=== PATIENT | male | born 1940 | race Caucasian/White ===

== ENCOUNTER 2017-11-09 08:20 | Day surgery (SDC) | payer OTHER ==
[2017-11-09] VITALS (9 sets, daily range): BP systolic 104–137; BP diastolic 56–80
[~2017-11-09] VITALS: Ht 182.9 cm; Wt 99.0 kg
[2017-11-09] MEDS ORDERED: LORazepam 0.5 MG tablet PO PRN (09:40)
[2017-11-09] MEDS ORDERED: normal saline 1000ml 1,000 ML IV SCH (09:40)
[2017-11-09] MEDS ORDERED: diphenhydrAMINE 25mg capsule PO ONE (09:45)
[2017-11-09] MEDS ORDERED: ceFAZolin inj. 1,000 MG in dextrose 5%-water 50ml 50 ML IV SCH (10:00)
[2017-11-09] MEDS ORDERED: ceFAZolin 1GM/D5W- ADD-VANTAGE 50 ML IV SCH (10:00)
[2017-11-09] MEDS ORDERED: LACT1CAP65 PO (10:31)
[2017-11-09] MEDS ORDERED: CHOL100044 PO (10:31)
[2017-11-09] MEDS ORDERED: COQ (10:31)
[2017-11-09] MEDS ORDERED: TERA2CAP4 PO (10:31)
[2017-11-09] MEDS ORDERED: CARB1DRO5 EACHEYE (10:31)
[2017-11-09] MEDS ORDERED: GLUC-150 PO (10:31)
[2017-11-09] MEDS ORDERED: DORZ10DR18 EACHEYE (10:31)
[2017-11-09] MEDS ORDERED: TEST1.25 TD (10:31)
[2017-11-09] MEDS ORDERED: Black Seed Oil PO ×2 (10:31)
[2017-11-09] MEDS ORDERED: FENO48TA15 PO (10:31)
[2017-11-09] MEDS ORDERED: ATOR20TA PO (10:31)
[2017-11-09] MEDS ORDERED: OMEP40CA37 PO (10:31)
[2017-11-09] MEDS ORDERED: CLOP75TA35 PO (10:31)
[2017-11-09] MEDS ORDERED: GRAPESEED (10:31)
[2017-11-09] MEDS ORDERED: FISH12002 PO (10:31)
[2017-11-09] MEDS ORDERED: ASPI-1265 PO (10:31)
[2017-11-09] MEDS ORDERED: OREG1500 PO (10:31)
[2017-11-09] MEDS ORDERED: MULT-38 PO (10:31)
[2017-11-09] MEDS ORDERED: VITC500T PO (10:31)
[2017-11-09] MEDS ORDERED: midazolam 2 mg/2 ml injection ONE (13:57)
[2017-11-09] MEDS ORDERED: fentaNYL/PF 50MCG/1 ML 2ML syringe ONE (13:57)
[2017-11-09] MEDS ORDERED: ceFAZolin 1000mg inj ONE ×2 (13:57→14:58)
[2017-11-09] MEDS ORDERED: ceFAZolin 1GM/D5W- ADD-VANTAGE 50 ML IV ONE (13:57)
[2017-11-09] MEDS ORDERED: LIDOcaine 1.5% w/epinephrine 1:200,000 5ml ampul ONE (13:58)
== END 2017-11-09 17:50 | disposition home or self-care (01) ==
LOC: SSTAY O 08:20
PROVIDERS: ATTEND Internal Medicine Interventional Cardiology
DX: I44.1 Atrioventricular block, second degree (principal); I35.0 Nonrheumatic aortic (valve) stenosis; E78.5 Hyperlipidemia, unspecified; I44.5 Left posterior fascicular block; I10 Essential (primary) hypertension; E11.9 Type 2 diabetes mellitus without complications; I25.2 Old myocardial infarction; I25.810 Atherosclerosis of coronary artery bypass graft(s) without angina pectoris; Z87.891 Personal history of nicotine dependence; Z72.89 Other problems related to lifestyle; Z85.828 Personal history of other malignant neoplasm of skin; Z95.5 Presence of coronary angioplasty implant and graft; Z86.718 Personal history of other venous thrombosis and embolism; Z79.82 Long term (current) use of aspirin; Z79.899 Other long term (current) drug therapy; Z88.8 Allergy status to other drugs, medicaments and biological substances; Z98.890 Other specified postprocedural states
CPT/HCPCS: 33208; 93005; 99152; 99153; A4565; C1785; C1898; J0690; J2250; J3010; J3490; J7030; Q0163; A4620; J7060

== ENCOUNTER 2021-02-22 09:35 | Observation (INO) | payer OTHER ==
[~2021-02-22] VITALS: Ht 182.9 cm; Wt 102.2 kg
[~2021-02-22 09:35] MED LIST: ASPI-1265 PO; ATOR20TA PO; CARB1DRO5 EACHEYE; CHOL100044 PO; CLOP75TA34 PO; COQ PO; DORZ10DR18 EACHEYE; FENO48TA15 PO; FENO48TA9 PO; FISH12002 PO; GLUC-150 PO; GRAPESEED PO; LACT1CAP65 PO; LISI2.5T2 PO; METO-539 PO; MULT-38 PO; OMEP20CA15 PO; TERA2CAP4 PO; TEST1.25 TD
[2021-02-22 10:58] LABS: BASOPHILS # (AUTO) 0.1 X10'3 (0-0.2); BASOPHILS % (AUTO) 1.2 % (0-1); EOSINOPHILS # (AUTO) 0.2 X10'3 (0-0.9); EOSINOPHILS % (AUTO) 3.8 % (0-6); HEMATOCRIT 32.9 % (42.0-52.0); HEMOGLOBIN 11.3 g/dl (14.0-17.9); LYMPHOCYTES % (AUTO) 31.3 % (21-51); MEAN CORPUSCULAR HEMOGLOBIN 31.3 PG (27.0-31.0); MEAN CORPUSCULAR HGB CONC 34.3 g/dL (33.0-36.5); MEAN CORPUSCULAR VOLUME 91.3 FL (78-98); MEAN PLATELET VOLUME 7.3 FL (7.4-10.4); MONOCYTES # (AUTO) 0.7 X10'3 (0-0.9); MONOCYTES % (AUTO) 10.4 % (2-12); NEUTROPHILS # (AUTO) 3.3 X10'3 (1.8-7.7); NEUTROPHILS % (AUTO) 53.3 % (42-75); PLATELET COUNT 164 X10'3 (140-440); RED CELL DISTRIBUTION WIDTH 14.1 % (11.5-14.5); WHITE BLOOD COUNT 6.2 X10'3 (4.5-11.0)
[2021-02-22 11:14] LABS: ALANINE AMINOTRANSFERASE 19 U/L (12-78); ALBUMIN 3.5 G/DL (3.4-5.0); ALBUMIN/GLOBULIN RATIO 1.1 (1.1-1.5); ALKALINE PHOSPHATASE 26 IU/L (46-116); ANION GAP 9 (8-16); ASPARTATE AMINO TRANSFERASE 21 U/L (10-37); BILIRUBIN,TOTAL 0.5 MG/DL (0.1-1.0); BLOOD UREA NITROGEN 18 MG/DL (7-18); BUN/CREATININE RATIO 10.6 (5.4-32.0); CALCIUM 8.2 MG/DL (8.5-10.1); CHLORIDE 109 MMOL/L (99-107); GLUCOSE 97 MG/DL (70-104); POTASSIUM 4.1 MMOL/L (3.5-5.1); SODIUM 141 MMOL/L (135-145); TOTAL PROTEIN 6.6 G/DL (6.4-8.2); eGFR 39 ML/MIN
[2021-02-22] MEDS ORDERED: normal saline 1000ML IV soln IVB ONE (13:00)
[2021-02-22] MEDS ORDERED: morphine 2 MG/ML inj. syringe IV PRN ×2 (13:35)
[2021-02-22] MEDS ORDERED: diphenhydrAMINE 25mg capsule PO PRN (13:35)
[2021-02-22] MEDS: normal saline 1000ml 1,000 ML IV SCH ×2 (13:35→22:56)
[2021-02-22] MEDS ORDERED: magnesium 2GM in 50ml NS 50 ML IV PRN (13:35)
[2021-02-22] MEDS ORDERED: HYDROcodone/acetaminophen 5mg/325mg tablet PO PRN (13:35)
[2021-02-22] MEDS ORDERED: HYDROcodone/acetaminophen 10/325mg tab PO PRN (13:35)
[2021-02-22] MEDS ORDERED: acetaminophen 650mg rectal suppository RC PRN (13:35)
[2021-02-22] MEDS ORDERED: magnesium Cl slow-release 64mg tablet PO PRN (13:35)
[2021-02-22] MEDS ORDERED: magnesium 4gm in 100ml NS 100 ML IV PRN (13:35)
[2021-02-22] MEDS ORDERED: magnesium hydroxide 30ml (MOM) UD suspension PO PRN (13:35)
[2021-02-22] MEDS ORDERED: potassium Cl 40MEQ/1/2NS 520ml 520 ML IV PRN ×2 (13:35)
[2021-02-22] MEDS ORDERED: bisacodyl 10mg suppository rectal RC PRN (13:35)
[2021-02-22] MEDS ORDERED: ondansetron/PF 4mg/2ml inj IV PRN (13:35)
[2021-02-22] MEDS ORDERED: mag hydrox/Alum hydrox/simeth 30ml oral suspension PO PRN (13:35)
[2021-02-22] MEDS ORDERED: potassium Cl 20 mEq SR tablet PO PRN ×2 (13:35)
[2021-02-22] MEDS ORDERED: acetaminophen 325mg tablet PO PRN ×2 (13:35)
[2021-02-22 13:58] LABS: CHOL/HDL RATIO 3.5 (0.00-4.99); CHOLESTEROL 145 MG/DL (0-200); HDL CHOLESTEROL 42 MG/DL (35-60); LDL CHOLESTEROL 59 MG/DL (50-100); TRIGLYCERIDES 312 MG/DL (20-135)
[2021-02-22 14:05] LABS: HEMOGLOBIN A1C 6.1 % (4.5-6.2)
[2021-02-22 16:18] LABS: CLARITY,URINE CLEAR (Clear); COLOR,URINE YELLOW (Yellow); GLUCOSE, URINE NEGATIVE (Neg); KETONES,URINE NEGATIVE (Neg); LEUKOCYTE ESTERASE ,URINE NEGATIVE (Neg); NITRITES, URINE NEGATIVE (Neg); OCCULT BLOOD,URINE NEGATIVE (Neg); PROTEIN,URINE NEGATIVE (Neg); UROBILINOGEN,URINE 0.2 E.U/dL (0.2-1.0)
[2021-02-22 16:20] LABS: UA COLLECTION TYPE URINAL
[2021-02-22] MEDS ORDERED: APIX5TAB3 PO (17:40)
[2021-02-22 18:00] VITALS: BP 114/56
--- NOTE | 2021-02-22 18:00 | NUR ---
Patient in room ORTHO 4017. I have received report from JULIO Harrison and had the opportunity to ask questions and assume patient care.
[2021-02-22] MEDS: K and/or MAG REPLACEMENT MC SCH (19:12)
[2021-02-22] MEDS ORDERED: FENO145T26 PO (19:42)
[2021-02-22] MEDS ORDERED: CHOL10006 PO (19:45)
[2021-02-22] MEDS ORDERED: VITA400C67 PO (19:45)
[2021-02-22] MEDS ORDERED: ROSU40TA PO (19:45)
[2021-02-22] MEDS ORDERED: ASCO-139 PO (19:45)
[2021-02-22] MEDS ORDERED: TROS20TA4 PO (19:48)
[2021-02-22] MEDS ORDERED: BETA1TAB PO (19:48)
[2021-02-22] MEDS ORDERED: TERA10CA4 PO (19:48)
[2021-02-22] MEDS ORDERED: FINA5TAB11 PO (19:48)
[2021-02-22] MEDS ORDERED: pantoprazole 40mg Tablet.DR PO PRN (19:55)
[2021-02-22 20:00] VITALS: BP_SYST 115; BP_SYST 117; BP_DIAS 46; BP_DIAS 52
[2021-02-22] MEDS ORDERED: heparin, porcine 5000 units/ml vial SQ SCH (20:00)
[2021-02-22] MEDS: apixaban 5mg tablet PO SCH (20:41)
[2021-02-22] MEDS: cholecalciferol (vitamin D3) 1,000 unit (25mcg) tablet PO SCH (20:41)
[2021-02-22] MEDS: lactobacillus rhamnosus 10,000 MMU CELLS/CAPSULE PO SCH (20:41)
[2021-02-22] MEDS: dorzolamide/timolol (Cosopt) ophthalmic drops 10ml bottle EACHEYE SCH (20:42)
[2021-02-22] MEDS: terazosin 5mg capsule PO SCH ×2 (20:43→20:50)
[2021-02-22] MEDS ORDERED: non-formulary drug (Fish Oil/Borage/Flax/Om3,6,9#1 (Omega 3-6-9 1,200 mg Softgel) 1 CAP) PO SCH (21:00)
[2021-02-22] MEDS: polyvinyl alcohol ophthalmic drops 15ml bottle EACHEYE SCH (21:00)
[2021-02-22 22:00] VITALS: BP 117/46
[2021-02-23 02:00] VITALS: BP 92/48
[2021-02-23 06:00] VITALS: BP 119/57
--- NOTE | 2021-02-23 06:13 | NUR ---
Problems reprioritized. Patient report given, questions answered & plan of care reviewed with JULIO Chan.
[2021-02-23 06:58] LABS: EOSINOPHILS # (AUTO) 0.3 X10'3 (0-0.9); EOSINOPHILS % (AUTO) 6.1 % (0-6); HEMATOCRIT 32.7 % (42.0-52.0); HEMOGLOBIN 10.9 g/dl (14.0-17.9); LYMPHOCYTES # (AUTO) 1.6 X10'3 (1.1-4.8); LYMPHOCYTES % (AUTO) 37.2 % (21-51); MEAN CORPUSCULAR HEMOGLOBIN 31.6 PG (27.0-31.0); MEAN CORPUSCULAR HGB CONC 33.5 g/dL (33.0-36.5); MEAN CORPUSCULAR VOLUME 94.3 FL (78-98); MEAN PLATELET VOLUME 7.7 FL (7.4-10.4); MONOCYTES # (AUTO) 0.5 X10'3 (0-0.9); MONOCYTES % (AUTO) 10.8 % (2-12); NEUTROPHILS % (AUTO) 44.9 % (42-75); PLATELET COUNT 146 X10'3 (140-440); RED BLOOD COUNT 3.46 X10'6 (4.70-6.10); RED CELL DISTRIBUTION WIDTH 14.3 % (11.5-14.5); WHITE BLOOD COUNT 4.4 X10'3 (4.5-11.0)
[2021-02-23 07:00] VITALS: BP_SYST 108; BP_SYST 119; BP_DIAS 51; BP_DIAS 55; BP_DIAS 57
[2021-02-23 07:16] LABS: ALANINE AMINOTRANSFERASE 20 U/L (12-78); ALKALINE PHOSPHATASE 26 IU/L (46-116); ANION GAP 11 (8-16); ASPARTATE AMINO TRANSFERASE 14 U/L (10-37); BILIRUBIN,TOTAL 0.4 MG/DL (0.1-1.0); BLOOD UREA NITROGEN 20 MG/DL (7-18); BUN/CREATININE RATIO 14.1 (5.4-32.0); CHLORIDE 110 MMOL/L (99-107); CHOL/HDL RATIO 3.8 (0.00-4.99); CHOLESTEROL 137 MG/DL (0-200); CREATININE 1.42 MG/DL (0.60-1.10); GLUCOSE 102 MG/DL (70-104); HDL CHOLESTEROL 36 MG/DL (35-60); LDL CHOLESTEROL 53 MG/DL (50-100); PHOSPHORUS 3.6 MG/DL (2.3-4.5); POTASSIUM 4.1 MMOL/L (3.5-5.1); SODIUM 141 MMOL/L (135-145); TOTAL CARBON DIOXIDE 19.6 MMOL/L (24-32); TOTAL PROTEIN 6.1 G/DL (6.4-8.2); TRIGLYCERIDES 315 MG/DL (20-135); eGFR 48 ML/MIN
[2021-02-23] MEDS: K and/or MAG REPLACEMENT MC SCH ×2 (08:00→19:16)
[2021-02-23] MEDS: polyvinyl alcohol ophthalmic drops 15ml bottle EACHEYE SCH ×4 (08:00→19:46)
[2021-02-23] MEDS ORDERED: lisinopril 2.5mg tablet PO SCH ×2 (08:00→19:00)
[2021-02-23] MEDS: lactobacillus rhamnosus 10,000 MMU CELLS/CAPSULE PO SCH ×2 (09:26→19:46)
[2021-02-23] MEDS: aspirin 81mg tab.chew PO SCH (09:26)
[2021-02-23] MEDS: normal saline 1000ml 1,000 ML IV SCH ×2 (09:35→19:35)
[2021-02-23] MEDS: fenofibrate 145mg tablet PO SCH (09:36)
[2021-02-23] MEDS: cholecalciferol (vitamin D3) 1,000 unit (25mcg) tablet PO SCH ×2 (09:36→19:45)
[2021-02-23] MEDS: vitamin E 400 unit capsule PO SCH (09:37)
[2021-02-23] MEDS: atorvastatin 20mg tablet PO SCH (09:37)
[2021-02-23] MEDS: dorzolamide/timolol (Cosopt) ophthalmic drops 10ml bottle EACHEYE SCH ×2 (09:37→19:46)
[2021-02-23] MEDS: ascorbic acid 500mg tablet PO SCH (09:37)
[2021-02-23] MEDS: apixaban 5mg tablet PO SCH ×2 (09:37→19:46)
[2021-02-23] MEDS: finasteride 5mg tablet PO SCH (09:37)
[2021-02-23] MEDS: beta-carotene(A) w/C & E + minerals tab PO SCH (09:37)
[2021-02-23] MEDS: metoprolol succinate 25mg (24-HOUR) SR. Tablet PO SCH (09:37)
[2021-02-23] MEDS: multivitamins, therapeutics tablet PO SCH (09:37)
--- NOTE | 2021-02-23 12:51 | NUR ---
CALLED [facility] AT , [facility] TOLD ME THAT PT IMPLANTABLE CARDIAC PACEMAKER IS NOT MRI SAFE AND THAT SHE WILL PAGE/CALL THE REP IN [facility] ARE[facility] TO CALL NURSING STAFF, REP CALLED NURSING STAFF AND SAID THAT THEY ARE PLACING PT ON THEIR SCHEDULE FOR TOMORROW TO INTERROGATE PT PACER
--- NOTE | 2021-02-23 13:09 | NUR ---
PAGED DR MARINO RE: PAGER ID: [phone] MESSAGE: MARIE CHAUDHARI. PACEMAKER IS NOT MRI COMPATIBLE. IT IS SCHEDULED TO BE INTERROGATED TOMORROW 02/24. O/N SANIA [id number]
[2021-02-23 18:00] VITALS: BP 106/54
--- NOTE | 2021-02-23 18:45 | NUR ---
Problems reprioritized. Patient report given, questions answered & plan of care reviewed with OSCAR KIM.
[2021-02-23] MEDS: terazosin 5mg capsule PO SCH (19:48)
[2021-02-23 22:00] VITALS: BP 99/51
--- NOTE | 2021-02-24 06:27 | NUR ---
Problems reprioritized. Patient report given, questions answered & plan of care reviewed with JULIO Ellington.
--- NOTE | 2021-02-24 06:41 | NUR ---
Patient in room ORTHO 4017. I have received report from JULIO De Luna and had the opportunity to ask questions and assume patient care.
--- NOTE | 2021-02-24 06:46 | NUR ---
Patient in room ORTHO 4017. I have received report from JULIO Fernandez and had the opportunity to ask questions and assume patient care. Rhys Hendricks RN will provide primary care. I will monitor all care and assist when needed.
[2021-02-24 06:56] VITALS: BP 117/61
[2021-02-24] MEDS: dorzolamide/timolol (Cosopt) ophthalmic drops 10ml bottle EACHEYE SCH (07:43)
[2021-02-24] MEDS: vitamin E 400 unit capsule PO SCH (07:44)
[2021-02-24] MEDS: ascorbic acid 500mg tablet PO SCH (07:44)
[2021-02-24] MEDS: beta-carotene(A) w/C & E + minerals tab PO SCH (07:45)
[2021-02-24] MEDS: cholecalciferol (vitamin D3) 1,000 unit (25mcg) tablet PO SCH (07:45)
[2021-02-24] MEDS: aspirin 81mg tab.chew PO SCH (07:45)
[2021-02-24] MEDS: lactobacillus rhamnosus 10,000 MMU CELLS/CAPSULE PO SCH (07:45)
[2021-02-24] MEDS: multivitamins, therapeutics tablet PO SCH (07:46)
[2021-02-24] MEDS: apixaban 5mg tablet PO SCH (07:46)
[2021-02-24] MEDS: atorvastatin 20mg tablet PO SCH (07:47)
[2021-02-24] MEDS: polyvinyl alcohol ophthalmic drops 15ml bottle EACHEYE SCH ×2 (07:48→13:00)
[2021-02-24] MEDS: finasteride 5mg tablet PO SCH (07:49)
[2021-02-24] MEDS: metoprolol succinate 25mg (24-HOUR) SR. Tablet PO SCH (07:49)
[2021-02-24] MEDS: fenofibrate 145mg tablet PO SCH (07:50)
[2021-02-24 08:00] VITALS: BP_SYST 110; BP_SYST 160; BP_SYST 97; BP_DIAS 40; BP_DIAS 55
[2021-02-24] MEDS: K and/or MAG REPLACEMENT MC SCH (08:00)
[2021-02-24 09:27] LABS: BASOPHILS % (AUTO) 0.9 % (0-1); EOSINOPHILS # (AUTO) 0.2 X10'3 (0-0.9); EOSINOPHILS % (AUTO) 4.6 % (0-6); HEMATOCRIT 33.3 % (42.0-52.0); HEMOGLOBIN 11.1 g/dl (14.0-17.9); LYMPHOCYTES # (AUTO) 1.6 X10'3 (1.1-4.8); LYMPHOCYTES % (AUTO) 29.9 % (21-51); MEAN CORPUSCULAR HEMOGLOBIN 31.3 PG (27.0-31.0); MEAN CORPUSCULAR HGB CONC 33.4 g/dL (33.0-36.5); MEAN CORPUSCULAR VOLUME 93.7 FL (78-98); MEAN PLATELET VOLUME 7.6 FL (7.4-10.4); MONOCYTES # (AUTO) 0.3 X10'3 (0-0.9); MONOCYTES % (AUTO) 5.6 % (2-12); NEUTROPHILS # (AUTO) 3.1 X10'3 (1.8-7.7); PLATELET COUNT 149 X10'3 (140-440); RED BLOOD COUNT 3.55 X10'6 (4.70-6.10); RED CELL DISTRIBUTION WIDTH 14.3 % (11.5-14.5); WHITE BLOOD COUNT 5.3 X10'3 (4.5-11.0)
[2021-02-24 10:07] LABS: ALANINE AMINOTRANSFERASE 15 U/L (12-78); ALBUMIN 3.2 G/DL (3.4-5.0); ALKALINE PHOSPHATASE 23 IU/L (46-116); ANION GAP 11 (8-16); ASPARTATE AMINO TRANSFERASE 17 U/L (10-37); BILIRUBIN,TOTAL 0.5 MG/DL (0.1-1.0); BLOOD UREA NITROGEN 20 MG/DL (7-18); BUN/CREATININE RATIO 14.6 (5.4-32.0); CALCIUM 8.4 MG/DL (8.5-10.1); CHLORIDE 107 MMOL/L (99-107); CREATININE 1.37 MG/DL (0.60-1.10); GLUCOSE 156 MG/DL (70-104); MAGNESIUM 1.8 MG/DL (1.5-2.4); PHOSPHORUS 2.9 MG/DL (2.3-4.5); POTASSIUM 3.8 MMOL/L (3.5-5.1); SODIUM 139 MMOL/L (135-145); TOTAL CARBON DIOXIDE 21.5 MMOL/L (24-32); TOTAL PROTEIN 6.3 G/DL (6.4-8.2); eGFR 50 ML/MIN
--- NOTE | 2021-02-24 10:09 | NUR ---
Page Sent PAGER ID: [phone] MESSAGE: MARÍA 5430-RE: MARIE CHAUDHARI [phone]...[facility] CALLED, THEY CANNOT SEND ANYONE TODAY TO INTERROGATE PACEMAKER...THEY PULLED A REPORT FROM DEVICE AND STATED THAT THE DEVICE LOOKS GOOD AND FORWARDED REPORT TO DR MORATAYA...OK TO DC PT?
--- NOTE | 2021-02-24 13:49 | NUR ---
In to discharge Pt, at bedside. Reviewed discharge instructions, and f/u apts-Pt agreeable. Tele 46m removed. 20G PIV to (L) FA removed without complications, catheter tip intact, bandage applied. Escorted pt out of facility in stable condition.
--- NOTE | 2021-02-24 13:57 | NUR ---
[place] documentation: I have reviewed and agree with all interventions, assessments performed and documented by JULIO Hendricks. Pt DC in stable condition.
== END 2021-02-24 13:15 | disposition home or self-care (01) ==
LOC: ER 09:36 → ED HOLD 13:33 → EDBEDREQ 15:06 → ORTHO 4S 16:15
PROVIDERS: ADMIT Family Medicine; ATTEND Family Medicine
DX: R55 Syncope and collapse (principal); R42 Dizziness and giddiness; R53.1 Weakness; I10 Essential (primary) hypertension; E78.5 Hyperlipidemia, unspecified; I25.10 Atherosclerotic heart disease of native coronary artery without angina pectoris; K21.9 Gastro-esophageal reflux disease without esophagitis; N40.0 Benign prostatic hyperplasia without lower urinary tract symptoms; E78.1 Pure hyperglyceridemia; I48.91 Unspecified atrial fibrillation; Z88.8 Allergy status to other drugs, medicaments and biological substances; Z98.890 Other specified postprocedural states; Z95.0 Presence of cardiac pacemaker; Z79.01 Long term (current) use of anticoagulants; Z79.02 Long term (current) use of antithrombotics/antiplatelets; Z79.82 Long term (current) use of aspirin; Z79.899 Other long term (current) drug therapy; Z87.891 Personal history of nicotine dependence; Z95.1 Presence of aortocoronary bypass graft
CPT/HCPCS: 36415; 70450; 71045; 80053; 80061; 81003; 83036; 83735; 83880; 84100; 84443; 84484; 84550; 85025; 85651; 87081; 92508; 92616; 93005; 93306; 93880; 96360; 96361; 97110; 97116; 97161; 97530; 99285; G0378; J7030

== ENCOUNTER 2023-02-10 11:13 | Emergency (ER) | payer OTHER, MEDICARE ==
[~2023-02-10] VITALS: Ht 185.4 cm; Wt 120.0 kg
[~2023-02-10 11:13] MED LIST changes: +APIX5TAB3 PO; +ASCO-139 PO; -ATOR20TA PO; +BETA1TAB PO; -CHOL100044 PO; +CHOL10006 PO; -CLOP75TA34 PO; -DORZ10DR18 EACHEYE; +DORZ10DR32 EACHEYE; +FENO145T26 PO; -FENO48TA15 PO; -FENO48TA9 PO; +FINA5TAB11 PO; -GLUC-150 PO; +LISI2.5T14 PO; -LISI2.5T2 PO; +ROSU40TA PO; +TERA10CA4 PO; -TERA2CAP4 PO; -TEST1.25 TD; +TROS20TA4 PO; +VITA400C67 PO
[2023-02-10 11:17] VITALS: BP 112/58
--- NOTE | 2023-02-10 11:40 | NUR ---
Pt came in c/o 02/22 back pain to his L side. Pt unable to AMB r/t pain. Pt was taking in a w/c and assisted into bed.
[2023-02-10] MEDS ORDERED: HYDROcodone/acetaminophen 10/325mg tab PO ONE ×2 (11:50→12:35)
--- NOTE | 2023-02-10 12:00 | NUR ---
UA sent to lab.
[2023-02-10 12:09] LABS: CLARITY,URINE CLEAR (Clear); COLOR,URINE YELLOW (Yellow); GLUCOSE, URINE NEGATIVE (Neg); KETONES,URINE NEGATIVE (Neg); LEUKOCYTE ESTERASE ,URINE NEGATIVE (Neg); NITRITES, URINE NEGATIVE (Neg); OCCULT BLOOD,URINE NEGATIVE (Neg); PH,URINE 5.5 (4.8-8.0); PROTEIN,URINE NEGATIVE (Neg); UA COLLECTION TYPE VOIDED; UROBILINOGEN,URINE 0.2 E.U/dL (0.2-1.0)
[2023-02-10 12:40] LABS: BASOPHILS # (AUTO) 0.1 X10'3 (0-0.2); BASOPHILS % (AUTO) 1.1 % (0-1); EOSINOPHILS # (AUTO) 0.2 X10'3 (0-0.9); EOSINOPHILS % (AUTO) 3.3 % (0-6); HEMATOCRIT 37.1 % (42.0-52.0); HEMOGLOBIN 12.5 g/dl (14.0-17.9); LYMPHOCYTES # (AUTO) 1.7 X10'3 (1.1-4.8); LYMPHOCYTES % (AUTO) 29.7 % (21-51); MEAN CORPUSCULAR HEMOGLOBIN 31.1 PG (27.0-31.0); MEAN CORPUSCULAR HGB CONC 33.6 g/dL (33.0-36.5); MEAN CORPUSCULAR VOLUME 92.6 FL (78-98); MEAN PLATELET VOLUME 7.6 FL (7.4-10.4); MONOCYTES # (AUTO) 0.4 X10'3 (0-0.9); MONOCYTES % (AUTO) 7.6 % (2-12); NEUTROPHILS # (AUTO) 3.4 X10'3 (1.8-7.7); NEUTROPHILS % (AUTO) 58.3 % (42-75); PLATELET COUNT 194 X10'3 (140-440); RED BLOOD COUNT 4.01 X10'6 (4.70-6.10); RED CELL DISTRIBUTION WIDTH 13.7 % (11.5-14.5); WHITE BLOOD COUNT 5.9 X10'3 (4.5-11.0)
[2023-02-10 12:46] LABS: ALANINE AMINOTRANSFERASE 25 U/L (12-78); ALBUMIN 3.5 G/DL (3.4-5.0); ALKALINE PHOSPHATASE 34 IU/L (46-116); ANION GAP 8 (8-16); ASPARTATE AMINO TRANSFERASE 23 U/L (10-37); BILIRUBIN,TOTAL 0.5 MG/DL (0.1-1.0); BLOOD UREA NITROGEN 19 MG/DL (7-18); BUN/CREATININE RATIO 12.3 (10.0-20.0); CALCIUM 8.8 MG/DL (8.5-10.1); CHLORIDE 107 MMOL/L (99-107); CREATININE 1.55 MG/DL (0.60-1.10); GLUCOSE 108 MG/DL (70-104); POTASSIUM 4.3 MMOL/L (3.5-5.1); SODIUM 137 MMOL/L (135-145); TOTAL CARBON DIOXIDE 22.1 MMOL/L (24-32); eGFR 43 ML/MIN
[2023-02-10] MEDS ORDERED: LIDO-15 TOP (12:57)
[2023-02-10] MEDS ORDERED: TRAM50TA2 PO (12:57)
== END 2023-02-10 13:14 | disposition home or self-care (01) ==
LOC: ER 11:13
DX: M54.59 Other low back pain (principal); M79.10 Myalgia, unspecified site; I51.9 Heart disease, unspecified; Z88.8 Allergy status to other drugs, medicaments and biological substances; Z88.6 Allergy status to analgesic agent; Z79.899 Other long term (current) drug therapy
CPT/HCPCS: 36415; 80053; 81003; 85025; 99283

== ENCOUNTER 2023-04-20 11:42 | Day surgery (SDC) | payer OTHER ==
[2023-04-16 10:14] LABS: BASOPHILS # (AUTO) 0.1 X10'3 (0-0.2); BASOPHILS % (AUTO) 1.2 % (0-1); EOSINOPHILS # (AUTO) 0.2 X10'3 (0-0.9); EOSINOPHILS % (AUTO) 4.3 % (0-6); HEMATOCRIT 37.1 % (42.0-52.0); HEMOGLOBIN 12.4 g/dl (14.0-17.9); LYMPHOCYTES # (AUTO) 1.8 X10'3 (1.1-4.8); MEAN CORPUSCULAR HEMOGLOBIN 31.2 PG (27.0-31.0); MEAN CORPUSCULAR HGB CONC 33.4 g/dL (33.0-36.5); MEAN CORPUSCULAR VOLUME 93.4 FL (78-98); MEAN PLATELET VOLUME 7.6 FL (7.4-10.4); MONOCYTES # (AUTO) 0.5 X10'3 (0-0.9); NEUTROPHILS # (AUTO) 3.1 X10'3 (1.8-7.7); NEUTROPHILS % (AUTO) 53.5 % (42-75); PLATELET COUNT 195 X10'3 (140-440); RED BLOOD COUNT 3.97 X10'6 (4.70-6.10); RED CELL DISTRIBUTION WIDTH 14.1 % (11.5-14.5); WHITE BLOOD COUNT 5.7 X10'3 (4.5-11.0)
[2023-04-16 10:25] LABS: APTT 29 SECONDS (22-32); INR 1.1 INR; PROTHROMBIN TIME 11.6 SECONDS (9.0-12.0)
[2023-04-16 10:31] LABS: ALBUMIN 3.5 G/DL (3.4-5.0); ANION GAP 12 (8-16); BLOOD UREA NITROGEN 20 MG/DL (7-18); BUN/CREATININE RATIO 11.8 (10.0-20.0); CALCIUM 9.1 MG/DL (8.5-10.1); CHLORIDE 106 MMOL/L (99-107); CHOL/HDL RATIO 3.6 (0.00-4.99); CHOLESTEROL 135 MG/DL (0-200); CREATININE 1.69 MG/DL (0.60-1.10); GLUCOSE 108 MG/DL (70-104); HDL CHOLESTEROL 37 MG/DL (35-60); LDL CHOLESTEROL 44 MG/DL (50-100); POTASSIUM 3.8 MMOL/L (3.5-5.1); SODIUM 141 MMOL/L (135-145); TOTAL CARBON DIOXIDE 23.1 MMOL/L (24-32); TRIGLYCERIDES 377 MG/DL (20-135); eGFR 39 ML/MIN
[2023-04-20] VITALS (12 sets, daily range): BP systolic 93–122; BP diastolic 57–91; PULSE 66–79; RESP 14–18; TEMP 97.8; O2SAT 94–99
[~2023-04-20] VITALS: Ht 182.9 cm; Wt 99.4 kg
[~2023-04-20 11:42] MED LIST changes: +LIDO-15 TOP
[2023-04-20] MEDS ORDERED: normal saline 1,000 ML IV SCH (12:00)
[2023-04-20] MEDS ORDERED: diphenhydrAMINE 25mg capsule PO PRN (12:00)
[2023-04-20] MEDS ORDERED: LORazepam 0.5 MG tablet PO PRN (12:00)
[2023-04-20] MEDS ORDERED: LIDOcaine 1% (10mg/ml) 2ml vial ONE (12:22)
[2023-04-20] MEDS ORDERED: OREG1500 PO (12:53)
[2023-04-20] MEDS ORDERED: UBID100C16 PO (12:53)
[2023-04-20] MEDS ORDERED: Prevagen PO (12:54)
[2023-04-20] MEDS ORDERED: CARB15DR EACHEYE (12:54)
[2023-04-20] MEDS ORDERED: PUMPKIN SEED OIL PO (12:54)
[2023-04-20] MEDS ORDERED: LIDOcaine 1% 30ml preserv. free vial ONE (13:03)
[2023-04-20] MEDS ORDERED: heparin 1,000unit/ml 10ml vial 10 ML ONE (13:03)
[2023-04-20] MEDS ORDERED: midazolam 1 mg/ML 2ml injection ONE ×3 (13:03→14:17)
[2023-04-20] MEDS ORDERED: fentaNYL/PF 50MCG/1 ML 2ML syringe ONE (13:03)
[2023-04-20] MEDS ORDERED: nitroGLYCERIN 500mcg/5mL D5W 5 ML IV ONE (13:04)
[2023-04-20] MEDS ORDERED: DOBUTamine-DoBUTrex 500mg/D5W 250 ML IV ONE (13:19)
[2023-04-20] MEDS ORDERED: iohexol 350MG/ML 100ml bottle IV ONE (13:29)
[2023-04-20] MEDS ORDERED: metoprolol tartrate 1mg/ml inj IV ONE (14:10)
== END 2023-04-20 18:20 | disposition home or self-care (01) ==
LOC: SSTAY O 11:42
PROVIDERS: ATTEND Student in an Organized Health Care Education/Training Program
DX: I35.2 Nonrheumatic aortic (valve) stenosis with insufficiency (principal); I25.810 Atherosclerosis of coronary artery bypass graft(s) without angina pectoris; E78.5 Hyperlipidemia, unspecified; G47.33 Obstructive sleep apnea (adult) (pediatric); E11.9 Type 2 diabetes mellitus without complications; I48.92 Unspecified atrial flutter; I44.1 Atrioventricular block, second degree; I65.29 Occlusion and stenosis of unspecified carotid artery; I25.2 Old myocardial infarction; I10 Essential (primary) hypertension; I49.5 Sick sinus syndrome; Z86.718 Personal history of other venous thrombosis and embolism; Z95.0 Presence of cardiac pacemaker; Z79.01 Long term (current) use of anticoagulants; Z79.899 Other long term (current) drug therapy; Z95.5 Presence of coronary angioplasty implant and graft; Z88.8 Allergy status to other drugs, medicaments and biological substances
CPT/HCPCS: 36415; 80048; 80061; 85025; 85610; 85730; 93005; 93461; 99152; 99153; J1250; J1644; J2250; J3010; J3490; J7030; Q9967; A6258; C1751; C1760

== ENCOUNTER 2024-02-15 10:41 | Day surgery (SDC) | payer OTHER ==
[~2024-02-15] VITALS: Ht 182.9 cm; Wt 96.4 kg
[~2024-02-15 10:41] MED LIST changes: -ASPI-1265 PO; +CARB15DR EACHEYE; -CARB1DRO5 EACHEYE; -COQ PO; -GRAPESEED PO; -LACT1CAP65 PO; -LIDO-15 TOP; -OMEP20CA15 PO; +OREG1500 PO; +PUMPKIN SEED OIL PO; +Prevagen PO; -TERA10CA4 PO; +UBID100C16 PO
[2024-02-15] MEDS ORDERED: diphenhydrAMINE 25mg capsule PO PRN (11:05)
[2024-02-15] MEDS ORDERED: LORazepam 0.5 MG tablet PO PRN (11:05)
[2024-02-15] MEDS ORDERED: normal saline 1,000 ML IV SCH (11:05)
[2024-02-15 11:48] LABS: BASOPHILS # (AUTO) 0.1 X10'3 (0-0.2); BASOPHILS % (AUTO) 1.2 % (0-1); EOSINOPHILS # (AUTO) 0.3 X10'3 (0-0.9); EOSINOPHILS % (AUTO) 3.7 % (0-6); HEMATOCRIT 34.5 % (42.0-52.0); HEMOGLOBIN 11.6 g/dl (14.0-17.9); LYMPHOCYTES # (AUTO) 2.6 X10'3 (1.1-4.8); LYMPHOCYTES % (AUTO) 36.2 % (21-51); MEAN CORPUSCULAR HGB CONC 33.6 g/dL (33.0-36.5); MEAN CORPUSCULAR VOLUME 92.3 FL (78-98); MEAN PLATELET VOLUME 7.4 FL (7.4-10.4); MONOCYTES # (AUTO) 0.8 X10'3 (0-0.9); MONOCYTES % (AUTO) 10.7 % (2-12); NEUTROPHILS # (AUTO) 3.5 X10'3 (1.8-7.7); NEUTROPHILS % (AUTO) 48.2 % (42-75); PLATELET COUNT 183 X10'3 (140-440); RED BLOOD COUNT 3.74 X10'6 (4.70-6.10); RED CELL DISTRIBUTION WIDTH 13.9 % (11.5-14.5); WHITE BLOOD COUNT 7.2 X10'3 (4.5-11.0)
[2024-02-15 11:52] LABS: APTT 24 SECONDS (22-32); PROTHROMBIN TIME 10.4 SECONDS (9.0-12.0)
[2024-02-15 11:56] LABS: ALBUMIN 3.4 G/DL (3.4-5.0); ANION GAP 12 (8-16); BLOOD UREA NITROGEN 15 MG/DL (7-18); BUN/CREATININE RATIO 10.8 (10.0-20.0); CALCIUM 9.1 MG/DL (8.5-10.1); CHLORIDE 105 MMOL/L (99-107); CHOL/HDL RATIO 3.9 (0.00-4.99); CHOLESTEROL 146 MG/DL (0-200); CREATININE 1.39 MG/DL (0.60-1.10); GLUCOSE 103 MG/DL (70-104); HDL CHOLESTEROL 37 MG/DL (35-60); LDL CHOLESTEROL 51 MG/DL (50-100); SODIUM 139 MMOL/L (135-145); TRIGLYCERIDES 399 MG/DL (20-135); eCRCL 43 ML/MIN; eGFR 49 ML/MIN
[2024-02-15] MEDS ORDERED: OMEP20CA15 PO (12:02)
[2024-02-15] MEDS ORDERED: FLO0.4C PO (12:02)
[2024-02-15] MEDS ORDERED: B2/V1TAB PO (12:02)
[2024-02-15 12:27] VITALS: BP 122/62; PULSE 63; RESP 16; TEMP 98; O2SAT 94
[2024-02-15 12:33] VITALS: RESP 16; O2SAT 94
== END 2024-02-15 14:48 | disposition home or self-care (01) ==
LOC: SSTAY O 10:41
PROVIDERS: ATTEND Student in an Organized Health Care Education/Training Program
DX: I35.0 Nonrheumatic aortic (valve) stenosis (principal); Z53.8 Procedure and treatment not carried out for other reasons; I25.10 Atherosclerotic heart disease of native coronary artery without angina pectoris; E11.9 Type 2 diabetes mellitus without complications; E78.00 Pure hypercholesterolemia, unspecified; I48.92 Unspecified atrial flutter; G47.33 Obstructive sleep apnea (adult) (pediatric); I25.5 Ischemic cardiomyopathy; I25.2 Old myocardial infarction; Z86.718 Personal history of other venous thrombosis and embolism; Z79.01 Long term (current) use of anticoagulants; Z79.899 Other long term (current) drug therapy; Z95.1 Presence of aortocoronary bypass graft; Z88.8 Allergy status to other drugs, medicaments and biological substances
CPT/HCPCS: 36415; 80048; 80061; 85025; 85610; 85730; 93005; J7030

== ENCOUNTER 2025-01-10 15:16 | Emergency (ER) | payer OTHER, MEDICARE ==
[~2025-01-10] VITALS: Ht 182.9 cm; Wt 98.0 kg
[~2025-01-10 15:16] MED LIST changes: +B2/V1TAB PO; +FLO0.4C PO; +OMEP20CA15 PO
--- NOTE | 2025-01-10 15:29 | ELECTROCARDIOGRAPH REPORT ---
[facility] Test Date: 2025-01-10 Test Time: 15:22:29 Pat Name: MARIE CHAUDHARI Department: EMERGENCY ROOM Room: Gender: M Sandblaster Paint Sprayer: STACY : [id number] Requested By: MARITZA SANCHES Order Number: [id number] Reading MD: Measurements Intervals [place] Rate: 64 P: 89 NM: 194 QRS: -60 QRSD: 157 T: 106 QT: 486 QTc: 502 Interpretive Statements Ventricular-paced rhythm No further analysis attempted due to paced rhythm Please click the below link to view image of tracing.
--- NOTE | 2025-01-10 15:46 | RADIOLOGY REPORT ---
DI CHEST,SINGLE VIEW, HISTORY: CP COMPARISON: None None TECHNICAL DATA: 1 view of the chest was obtained. FINDINGS: Lines and tubes: A cardiac pacer is seen. Cardiomediastinal silhouette: normal Pulmonary vasculature: normal Lung expansion: low Lung airspace: normal Lung interstitium: normal Pleura: normal Pneumothorax: no Bones: Unremarkable Other: Sternotomy wires and mediastinal clips are seen. IMPRESSION: No acute intrathoracic abnormality.
[2025-01-10 16:29] LABS: BASOPHILS % (AUTO) 0.2 % (0-1); EOSINOPHILS # (AUTO) 0.2 X10'3 (0-0.9); EOSINOPHILS % (AUTO) 2.6 % (0-6); HEMATOCRIT 37.9 % (42.0-52.0); HEMOGLOBIN 13.1 g/dl (14.0-17.9); LYMPHOCYTES % (AUTO) 25.8 % (21-51); MEAN CORPUSCULAR HEMOGLOBIN 31.5 PG (27.0-31.0); MEAN CORPUSCULAR HGB CONC 34.5 g/dL (33.0-36.5); MEAN CORPUSCULAR VOLUME 91.3 FL (78-98); MEAN PLATELET VOLUME 7.1 FL (7.4-10.4); MONOCYTES # (AUTO) 0.6 X10'3 (0-0.9); MONOCYTES % (AUTO) 7.3 % (2-12); NEUTROPHILS % (AUTO) 64.1 % (42-75); PLATELET COUNT 168 X10'3 (140-440); RED BLOOD COUNT 4.15 X10'6 (4.70-6.10); RED CELL DISTRIBUTION WIDTH 14.4 % (11.5-14.5); WHITE BLOOD COUNT 7.8 X10'3 (4.5-11.0)
[2025-01-10 16:45] LABS: ALANINE AMINOTRANSFERASE 27 U/L (12-78); ALBUMIN 3.3 G/DL (3.4-5.0); ALKALINE PHOSPHATASE 49 IU/L (46-116); ANION GAP 7 (8-16); ASPARTATE AMINO TRANSFERASE 22 U/L (10-37); BILIRUBIN,TOTAL 0.7 MG/DL (0.1-1.0); BLOOD UREA NITROGEN 12 MG/DL (7-18); BUN/CREATININE RATIO 9.2 (10.0-20.0); CALCIUM 8.8 MG/DL (8.5-10.1); CHLORIDE 107 MMOL/L (99-107); GLUCOSE 108 MG/DL (70-104); SODIUM 138 MMOL/L (135-145); TOTAL CARBON DIOXIDE 24.2 MMOL/L (24-32); TOTAL PROTEIN 6.5 G/DL (6.4-8.2); eCRCL 45 ML/MIN; eGFR 52 ML/MIN
[2025-01-10 16:52] LABS: PRO BRAIN NATRIURETIC PEPTIDE 978 PG/ML (0-450)
--- NOTE | 2025-01-10 17:05 | Physician Documentation ---
History of Present Illness ~ Chief Complaint: Mechanical Fall Stated Complaint: FALL Time Seen by MD: 15:45 Primary Medical Doctor: DR MORATAYA Source: patient, family HPI 84-year-old male history of dementia presenting for rib pain and facial pain after fall. Patient has dementia and does not recall the fall. Unknown loss of consciousness. He is complaining of left chest wall pain Tetanus within 5 Years?: Yes Medication Reconciliation Allergies: Coded Allergies: oxybutynin (Verified Allergy, Unknown, 02/10/23) testosterone (Verified Allergy, Unknown, 02/10/23) Scheduled Apixaban (Eliquis), 0.5 TAB PO Q12H, (Reported) Ascorbic Acid (Vitamin C), 0.5 TAB PO DAILY, (Reported) B2/Vit A,C & E/Lut/Zeaxanth/Mn (Icaps Tablet), 1 TAB PO BID, (Reported) Beta-Carotene(A) W-C & E/Min (Icaps Areds Formula Tablet), 1 EACH PO BID, (Reported) Cholecalciferol (Vitamin D), 1 CAP PO DAILY, (Reported) Fenofibrate Nanocrystallized (Fenofibrate), 1 TAB PO DAILY, (Reported) Finasteride (Finasteride), 1 TAB PO DAILY, (Reported) Fish Oil/Borage/Flax/Om3,6,9#1 ([place] 3-6-9 1,200 mg Softgel), 2 CAP PO TID, (Reported) Lisinopril (Lisinopril), 1 TAB PO DAILY, (Reported) Metoprolol Succinate* (Toprol Xl*), 1 TAB PO DAILY, (Reported) Multivitamin (Daily Multiple Vitamin), 1 TAB PO DAILY, (Reported) Omeprazole (Omeprazole), 1 CAP PO DAILY, (Reported) Oregano Oil (Oil Of Oregano), 1,500 MG PO DAILY, (Reported) Rosuvastatin Calcium* (Crestor*), 1 TAB PO DAILY, (Reported) Tamsulosin Hcl (Flomax), 1 CAP PO DAILY, (Reported) Timolol Maleate/Dorzolam Hcl Opth* (Cosopt Eye Drops*), 1 DRP EACHEYE BID, (Reported) Trospium Chloride (Trospium Chloride), 1 TAB PO HS, (Reported) Ubidecarenone (Coq-10), 200 MG PO BID, (Reported) Vitamin E Acetate (Vitamin E), 1 CAP PO BID, (Reported) [Prevagen], 1 TAB PO DAILY, (Reported) [Pumpkin Seed Oil], 1,000 MG PO TID, (Reported) Scheduled PRN Carboxymethylcellulose Sodium (Refresh Tears), 1 DROP EACHEYE BID PRN for dry eyes, (Reported) Past Medical History Past Medical History: *ENT*, *CARDIOVASCULAR*, Coronary Artery Disease, *CANCER* Past Surgical History: coronary bypass surgery, pacemaker Alcohol Use: None Drug Use: none Lives In: Home Occupation: retired Review of Systems All Other Systems at this time: Reviewed and Negative Physical Exam Vital Signs: Temperature: 97.9, Heart Rate: 74, Respiratory Rate: 16, BP: 138/68, Pulse Oximetry: 95, Weight: 98.000 Physical Exam Nontoxic No C-spine tenderness Extraocular motions intact Contusion left jaw child range of motion intact Diffuse tenderness left lateral chest wall Left upper quadrant abdominal tenderness Progress Progress Note A 84-year-old male history of dementia presenting for fall with rib pain and abdominal tenderness on exam. Contusion on salter. Signed out to Dr. Bajwa pending CT scans Results/Orders Results/Orders Completed Orders - FITO BAJWA MD Ondansetron Disint. Tablet (Zofran Odt T (01/10/25 18:35) Acetaminophen 325mg Tablet (Tylenol Tabl (01/10/25 18:35) Medications Received in ER Medications (Trade) Dose Ordered Sig/Emely Route PRN Reason Start Time Stop Time Status Last Admin Dose Admin (Zofran ODT tablet) 4 mg ONCE ONCE PO 01/10/25 18:35 01/10/25 18:36 DC 01/10/25 18:45 4 MG (Tylenol tablet) 650 mg ONCE ONCE PO 01/10/25 18:35 01/10/25 18:36 DC 01/10/25 18:44 650 MG Vital Signs 01/10/25 01/10/25 01/10/25 01/10/25 15:21 18:11 18:13 19:11 Temp 97.9 Pulse 74 65 70 Resp 16 12 18 18 B/P (MAP) 138/68 139/64 (89) 142/70 (94) Pulse Ox 95 97 01/10/25 01/10/2501/10/25 19:12 19:13 19:29 Temp 98.0 98.1 Pulse 74 70 Resp 16 B/P (MAP) 117/57 Pulse Ox 99 57 O2 Flow Rate 0 Laboratory Tests Test 01/10/25 15:41 01/10/25 16:20 01/10/25 17:47 Urine Specimen Description Cln catch midstream Urine Color Yellow Urine Clarity Clear Urine pH 7.0 Urine Specific [place] 1.010 Urine Protein Negative Urine Glucose (UA) >=1000 H Urine Ketones Negative Urine Occult Blood Negative Urine Nitrite Negative Urine Bilirubin Negative Urine Urobilinogen 0.2 Urine Leukocyte Esterase Negative Urine RBC 0-2 Urine WBC 0-4 Urine Squamous Epithelial Cells None seen Urine Bacteria None seen Urine Mucus None seen Volume Urine Centrifuged 10 ml Urine Comment White Blood Count 7.8 Red Blood Count 4.15 L Hemoglobin 13.1 L Hematocrit 37.9 L Mean Corpuscular Volume 91.3 Mean Corpuscular Hemoglobin 31.5 H Mean Corpuscular Hemoglobin Concent 34.5 Red Cell Distribution Width 14.4 Platelet Count 168 Mean Platelet Volume 7.1 L Neutrophils (%) (Auto) 64.1 Lymphocytes (%) (Auto) 25.8 Monocytes (%) (Auto) 7.3 Eosinophils (%) (Auto) 2.6 Basophils (%) (Auto) 0.2 Neutrophils # (Auto) 5.0 Lymphocytes # (Auto) 2.0 Monocytes # (Auto) 0.6 Eosinophils # (Auto) 0.2 Basophils # (Auto) 0.0 CBC Comment Sodium Level 138 Potassium Level 4.0 Chloride Level 107 Carbon Dioxide Level 24.2 Anion Gap 7 L Blood Urea Nitrogen 12 Creatinine 1.30 H Estimated GFR/1.73 m2 52 BUN/Creatinine Ratio 9.2 L Glucose Level 108 H Calcium Level 8.8 Total Bilirubin 0.7 Aspartate Amino Transf (AST/SGOT) 22 Alanine Aminotransferase (ALT/SGPT) 27 Alkaline Phosphatase 49 Troponin I High Sensitivity 23 27 Pro-B-Type Natriuretic Peptide 978 H Total Protein 6.5 Albumin 3.3 L Globulin 3.2 Albumin/Globulin Ratio 1.0 L Chemistry Comments Troponin I High Sens Percent Delta 17 Troponin I Hi Sens Absolute Change 4 Re-Evaluation Re-Evaluation : Progress This is Dr. Bajwa: Received emergent finding on CT scan regarding 3 mm subdural hematoma. Immediate neurosurgical consultation at [facility] implemented. Reviewed patient's medication list and there is apixaban listed however states he believes he stopped taking it as he states he did not like the way it made him feel. Patient does have noted history of dementia. Full code confirmed. Time 7:02 p.m.: Spoke with emergency room doctor at [facility] who has agreed for transfer. Time 7:19 p.m.: Received call from radiology that patient has bilateral pulmonary embolisms with no evidence of heart strain. Patient is saturating 99% on room air. These results were discussed with emergency physician at transfer facility. EKG/XRAY/CT/US/VASC/MRI EKG : Additional Comment EKG independently interpreted by myself time 3:22 p.m. indication fall ventricularly paced rhythm rate 64 left axis deviation no ST or T-wave abn ormalities CT : Impression CT head independently interpreted shows no fracture Medical Decision Making Additional info obtained from: old records Findings Patient presented to the emergency room with unwitnessed fall. Differentials include but are not limited to epidural bleed, subdural bleed, intraparenchymal bleed, musculoskeletal pain, fractures dislocations, soft tissue injury therefore emergent labs and bonilla scan ordered. Scan significant for subdural hematoma measuring 3 mm with no midline shift. Patient has Eliquis listed in his med list however he states he has stopped taking it. Patient also noted to have bilateral pulmonary embolisms. I have elected not to implement anticoagulation given patient's CT scan findings of his head and there was no evidence of heart strain and patient is saturating well. Erhard coma scale 15. As we do not have neurosurgical capabilities at our facility we have arrange for transfer to [facility]. Differential Dx:Considerations: Include: Fracture(s), Pneumothorax, Cerebral contusion Departure Disposition: 30 STILL A PATIENT Impression: Primary Impression: Chest wall tenderness Additional Impressions: Subdural hematoma Bilateral pulmonary embolism Condition: Critical Referrals: NO PRIMARY CARE PROVIDER (PCP) Critical Care Note Total Time (mins): 69 Critical Care Note The very real possibility of a deterioration of this patient's condition required the highest level of my preparedness for sudden, emergent intervention. I provided critical care services, which included medication orders, frequent reevaluations of the patient's condition and response to treatment, ordering and reviewing test results, and discussing the case with various consultants. Excludes time spent performing separately billable procedures. The critical care time associated with the care of the patient was 69 minutes in the acute management of subdural hemorrhage Signature Scribe Signature: na Attestation: The note accurately reflects work and decisions made by me.Fito Bajwa MD 01/10/25 19:22 MARITZA Mckenzie MD January 10, 2025 17:05 FITO BAJWA MD January 10, 2025 18:51
[2025-01-10 17:29] LABS: BILIRUBIN,URINE NEGATIVE (Neg); CLARITY,URINE CLEAR (Clear); COLOR,URINE YELLOW (Yellow); GLUCOSE, URINE >=1000 mg/dl (Neg); KETONES,URINE NEGATIVE (Neg); LEUKOCYTE ESTERASE ,URINE NEGATIVE (Neg); NITRITES, URINE NEGATIVE (Neg); OCCULT BLOOD,URINE NEGATIVE (Neg); PROTEIN,URINE NEGATIVE (Neg); UROBILINOGEN,URINE 0.2 E.U/dL (0.2-1.0)
[2025-01-10 17:35] LABS: UA COLLECTION TYPE CLN CATCH MIDSTREAM
[2025-01-10] MEDS ORDERED: iohexol 300mg/ml 100ml inj. ONE (17:36)
[2025-01-10 17:38] LABS: BACTERIA,URINE NONE SEEN /HPF (Neg); MUCUS STRANDS NONE SEEN /LPF (Neg); RBC,URINE 0-2 /HPF (0-2); SQUAMOUS EPITHELIAL CELL,UR NONE SEEN /LPF (FEW); WBC,URINE 0-4 /HPF (0-4)
--- NOTE | 2025-01-10 17:49 | RADIOLOGY REPORT ---
CLINICAL INDICATION: elbow injury LEFT TECHNIQUE: 4 radiographic views of the left elbow were obtained. Comparison: None FINDINGS/IMPRESSION: There is no evidence of acute fracture or dislocation. The visualized joint space is well maintained. The alignment is anatomical. There is no radiopaque foreign body.
[2025-01-10] MEDS: ringers solution, lacted 1,000 ML IV ONE (17:51)
[2025-01-10] MEDS: acetaminophen 325mg tablet PO ONE (18:44)
[2025-01-10] MEDS: ondansetron 4mg rapidly disintigrating tab PO ONE (18:45)
--- NOTE | 2025-01-10 19:01 | RADIOLOGY REPORT ---
Procedure: CT CT CERVICAL SPINE 01/10/2025 06:06 PM Indication: trauma Comparison Study: None Technique: Axial images were obtained and reformatted in coronal and sagittal planes. All CT scans at this medical facility are performed using dose modulation techniques as appropriate t o a performed exam including the following: Automated exposure control was utilized; adjustment of th e MA and/or KV according to patient size; and use of iterative reconstruction technique. CT Dose: CTDI volume is 22 mGy. Dose-length product is 514.4 mGy*cm FINDINGS: Bones: The vertebrae are normal in height. 2 mm degenerative grade 1 anterolisthesis of C4 on C5 not ed which is most likely degenerative in nature with associated advanced left posterior facet arthropa thy. Lateral masses C1 and C2 are well aligned. The posterior facet joints are well aligned. Narrowin g of discs and discogenic endplate changes are noted at C4-C7 levels. Soft tissues: Paraspinal and prevertebral soft tissues are within normal limits. Interval IMPRESSION: 1. Straightening of normal lordosis that could be positional, reflect muscle spasm or pain. Correlate clinically. 2. No acute osseous abnormality. 3. Multilevel degenerative changes of the cervical spine.
--- NOTE | 2025-01-10 19:02 | RADIOLOGY REPORT ---
EXAM: CT CT HEAD HISTORY: head trauma COMPARISON: CT HEAD on DOS: 02/23/21, CT HEAD on DOS: 02/22/21 TECHNIQUE: Axial images were obtained and reformatted in coronal and sagittal planes. All CT scans at this medical facility are performed using dose modulation techniques as appropriate to a performed e xam including the following: Automated exposure control was utilized; adjustment of the MA and/or KV according to patient size; and use of iterative reconstruction technique. CT Dose: CTDI volume is 68 mGy. Dose-length product is 53 mGy*cm FINDINGS: Supratentorial Region: No evidence for large acute territorial ischemia. Right parasagittal subdural hemorrhage measuring 3 mm in thickness. There is no midline shift. Confluent white matter hypoatten uating foci are noted bilaterally, which typically reflect chronic microvascular ischemic changes. Posterior Fossa: No acute abnormality. Brainstem: Unremarkable. Sellar/Suprasellar Region: Unremarkable. Ventricles, Cisterns, Sulci: Mildly prominent reflecting volume loss. Orbits: Unremarkable. Paranasal Sinuses: Unremarkable. Mastoid Air Cells: Unremarkable. Vasculature: Intracranial arterial calcified plaque formation noted. Bones/Soft Tissues: No acute abnormality. Other: None. IMPRESSION: 1. Small acute right parasagittal subdural hemorrhage in the superior sagittal sinus extending to the right tentorial leaflet and anterior to the right frontal lobe . There is no midline shift or evide nce of brain herniation. No calvarial fracture. 2. Moderate global cortical atrophy and chronic microvascular ischemic changes. Findings discussed with dr. Bajwa at 01/10/2025 06:40 PM, and acknowledged receipt and understan ding of the findings. ..
--- NOTE | 2025-01-10 19:19 | RADIOLOGY REPORT ---
Procedure: CT CT CHEST ABDOMEN PELVIS IV CON W/ IV CONTRAST 01/10/2025 06:11 PM Indication: chest wall trauma, abdominal trauma Comparison Study: None Technique: Axial images were obtained and reformatted in coronal and sagittal planes. All CT scans at this medical facility are performed using dose modulation techniques as appropriate to a performed e xam including the following: Automated exposure control was utilized; adjustment of the MA and/or KV according to patient size; and use of iterative reconstruction technique. CT Dose: CTDI volume is 22 mGy. Dose-length product is 1625 mGy*cm FINDINGS: Lower neck: Small thyroid gland with heterogeneous parenchyma several subcentimeter hypodense nodules . Cardiomediastinal: Bilateral pulmonary emboli which appears nearly occlusive in the left upper lobar branch. Emboli are seen in distal left pulmonary artery extending to left upper lobar branch. Small n onocclusive emboli are seen in the bilateral lower lobe segmental and subsegmental branches. Median s ternotomy wires and mediastinal vascular clips are seen. Mild cardiomegaly. Coronary artery calcifica tion / stenting. Pacer wires are seen in the right cardiac chambers. Lungs: No focal pulmonary opacity. No pleural effusion. No pneumothorax. Hepatobiliary: Unremarkable. Spleen: Unremarkable. Pancreas: Unremarkable. Adrenal Glands: Unremarkable. tract: The kidneys are normal in size bilaterally without hydronephrosis or nephrolithiasis. A 4 c m cyst is seen in the upper pole of the left kidney, simple appearing. The urinary bladder is unremar kable. GI tract: A small sliding hiatal hernia noted. No evidence of small bowel obstruction. The large bow el is unremarkable. The appendix is not visualized. No inflammatory change is noted in the right low er quadrant. Lymphatics: No mesenteric, retroperitoneal or periportal lymphadenopathy. 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 No evidence of dissection. Diffuse calcified plaque formation is noted. Pelvic Organs: Unremarkable . Bones/soft tissues: Age-indeterminate possibly acute depression of the inferior endplate of L1 with a pproximately 50% loss of height with heterogeneity of the adjacent bone without retropulsion. There i s 2 mm grade 1 anterolisthesis of L1 on L2, L2 on L3, L3 on L4, L4 on L5 and 2 mm grade 1 anterolisth esis L5 on S1 without pars defects most likely degenerative in nature. No acute rib fracture. The pel lakshmi bones appear intact. No definite sacral fracture. The bilateral hip joints and proximal femur chacorta ear intact. Sternum and scapulae are unremarkable. No acute rib fracture. Old healed lateral right 9 th rib fracture noted. Multilevel degenerative disc disease and posterior facet arthropathy of the rosey mbar spine. Other: None. IMPRESSION: 1. Age-indeterminate possibly acute depression of the inferior endplate of L1 with approximately 50% loss of height with heterogeneity of the adjacent bone without retropulsion. 2. Pulmonary emboli. An embolus is seen in the distal left pulmonary artery extending to the left u pper lobar branch severely narrowing/ occluding it. In addition, nonocclusive emboli are seen in the segmental subsegmental branches of the bilateral lower lobes pulmonary arteries. There is no evidence of right heart strain or pulmonary arterial hypertension. Findings discussed with Dr. Bajwa at 01/10/2025 07:12 PM, and acknowledged receipt and understan ding of the findings. ..
[2025-01-10 19:29] VITALS: BP 117/57; PULSE 70; RESP 16; TEMP 98.1; O2SAT 57
== END 2025-01-10 19:40 | disposition still patient (30) ==
LOC: ER 15:17
DX: S06.5XAA Traumatic subdural hemorrhage with loss of consciousness status unknown, initial encounter (principal); R07.89 Other chest pain; F03.90 Unspecified dementia, unspecified severity, without behavioral disturbance, psychotic disturbance, mood disturbance, and anxiety; I25.10 Atherosclerotic heart disease of native coronary artery without angina pectoris; I26.99 Other pulmonary embolism without acute cor pulmonale; Z88.8 Allergy status to other drugs, medicaments and biological substances; Z95.0 Presence of cardiac pacemaker; Z95.1 Presence of aortocoronary bypass graft; X58.XXXA Exposure to other specified factors, initial encounter; Y93.89 Activity, other specified; Y92.89 Other specified places as the place of occurrence of the external cause; Y99.8 Other external cause status
CPT/HCPCS: 36415; 70450; 71045; 71260; 72125; 73080; 74177; 80053; 81001; 83880; 84484; 85025; 93005; 99291; J7120; Q9967; 99285